=== PATIENT | female | born 1980 | race Caucasian/White ===

== ENCOUNTER 2024-06-20 01:44 | Emergency (ER) | payer OTHER, SELFPAY ==
[2024-06-20 01:49] VITALS: BP 122/86; PULSE 69; TEMP 36.2; O2SAT 100; BMI 25.8
--- NOTE | 2024-06-20 01:50 | ED.UPPEXIN1 ---
HPI HPI - Extremity Injury (Upper) General Chief Complaint: Extremity Injury, Upper Stated Complaint: UPPER EXTREMITY INJURY Time Seen by Provider: 06/20/24 01:46 History of Present Illness HPI narrative: This 44-year-old female who is right-hand dominant is brought to the emergency department by EMS from [facility]. 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 She has pain at the PIP joint and the DIP joint. She has limited range of motion but is able to move it. It did not break her fingernail. No medications were given prior to arrival. Related Data Allergies Allergy/AdvReac Type Severity Reaction Status Date / Time terbutaline (From Bre[facility]) Allergy Seizure Verified 06/20/24 02:01 Opioid HPI Opioid Management Most Recent Pain and Opioid Data: Last Pain Scale 5 06/20/24 02:17 06/20/24 Last ED Pain Assessment 06/20/24 01:44 Last MAR Pain Assessment 06/20/24 02:17 Review of Systems ROS Status of ROS 10 or more systems reviewed and unremarkable except as noted in history and below PFSH PFSH Social History Little interest or pleasure in doing things: not at all Feeling down, depressed, or hopeless: not at all Exam Narrative Exam Narrative: Vital signs and Nursing Notes reviewed: General: Awake, alert, oriented, no acute distress, lying comfortably on the stretcher HEENT: Normocephalic atraumatic, mucous membranes are moist and pink, eyes are clear, normal conjunctiva, vision is grossly intact Chest: Lungs are clear to auscultation with good air entry, there is no wheezing rhonchi or rales appreciated no accessory muscle use, patient is speaking in complete sentences-no chest wall tenderness to palpation CVS: Regular rate and rhythm S1-S2, no murmurs rubs or gallops, pulses are brisk and equal bilaterally Extremities: Mild tenderness and swelling to the distal end of the left fifth finger. Tenderness is specifically from the PIP joint to the distal end of the finger. There is some mild erythema and swelling at the pulp of the finger. Patient can gently flex and extend at all joints. There is no injury or tenderness to her hand. Sensation is intact. Skin: Normal in appearance without rash,pallor, petechiae or purpura Neuro: No focal deficits Constitutional Vital Signs, click to edit/add: Last Vital Signs Temp 97.2 F L 06/20/24 01:49 Pulse 69 06/20/24 01:49 Resp 16 06/20/24 01:49 BP 122/86 06/20/24 01:49 Pulse Ox 100 06/20/24 01:49 O2 Del Method Room Air 06/20/24 01:49 Course Vital Signs Vital signs: Vital Signs Temperature 97.2 F L 06/20/24 01:49 Pulse Rate 69 06/20/24 01:49 Respiratory Rate 16 06/20/24 01:49 Blood Pressure 122/86 06/20/24 01:49 Pulse Oximetry 100 06/20/24 01:49 Oxygen Delivery Method Room Air 06/20/24 01:49 Temperature 97.2 F L 06/20/24 01:49 Pulse Rate 69 06/20/24 01:49 Respiratory Rate 16 06/20/24 01:49 Blood Pressure 122/86 06/20/24 01:49 Pulse Oximetry 100 06/20/24 01:49 Oxygen Delivery Method Room Air 06/20/24 01:49 MDM - Extremity Injury (Upper) MDM Narrative Medical decision making narrative: This 24-year-old female who is right-hand dominant presents for evaluation after she injured her left fifth finger at work. She states she was working on the line and her finger got caught and got crushed. Her nail did not break. She has some tenderness and swelling from the DIP joint to the distal end of the finger. She is able to move at all joints. She was medicated with Tylenol and ibuprofen. X-ray of the extremity is negative for fracture dislocation or foreign body. She was placed in a finger splint for comfort and discharged home with prescription for ibuprofen. Discharge Plan Discharge Chief Complaint: Extremity Injury, Upper Clinical Impression: Crush injury to finger Patient Disposition: Home, Self-Care Time of Disposition Decision: 02:21 Condition: Good Print Language: Vietnamese Instructions: Crush Injury (ED) Additional Instructions: Follow-up with your facility's Workmans Comp or Health office. The x-ray of your hand does not show any fracture, dislocation or other notable abnormality. Use the splint as needed for comfort and protection. Use ibuprofen, ice and Tylenol as needed for pain. Referrals: Physician,Non-Staff, [Primary Care Provider] - 1 week
[2024-06-20] MEDS: ACETAMINOPHEN 325 MG TABLET 650 MG PO (02:17)
[2024-06-20] MEDS: IBUPROFEN 600 MG TABLET PO (02:17)
== END 2024-06-20 02:54 | disposition home or self-care (01) ==
PROVIDERS: Emergency Provider Emergency Medicine
DX: S67.197A Crushing injury of left little finger, initial encounter (principal); W23.0XXA Caught, crushed, jammed, or pinched between moving objects, initial encounter
CPT/HCPCS: 29130; 73140; 99283